=== PATIENT | female | born 1995 | race Caucasian/White ===

== ENCOUNTER 2022-09-01 16:55 | Emergency (ER) | payer MEDICAID, OTHER ==
[~2022-09-01] VITALS: Ht 154.9 cm; Wt 90.0 kg
[2022-09-01 17:15] VITALS: BP 144/97
[2022-09-01] MEDS ORDERED: ACETAMINOPHEN 325MG TABLET PO STA (21:19)
[2022-09-01] MEDS ORDERED: ONDANSETRON HCL 4MG/2ML INJ IV STA (21:19)
[2022-09-01] MEDS ORDERED: SODIUM CHLORIDE 0.9% 1,000 ML IV ONE (21:30)
[2022-09-01] MEDS ORDERED: AMOXICILLIN 500 MG CAPSULE PO ONE (21:30)
[2022-09-01 21:49] LABS: BASOPHILS % 0.3 % (0.0-2.0); EOSINOPHILS % 0.2 % (0.0-5.0); HEMATOCRIT. 42.1 % (36.0-48.0); LYMPHOCYTES % 19.9 % (20.0-50.0); MEAN CORPUSCULAR VOLUME 90.3 fL (81.0-99.0); MEAN PLATELET VOLUME 8.9 fl (7.4-10.4); MONOCYTES % 8.8 % (2.0-8.0); NEUTROPHILS % 70.8 % (40.0-76.0); PLATELET 269 x1000/uL (130-400); RED BLOOD CELL COUNT 4.66 mill/uL (4.2-5.4); RED CELL DISTRIBUTION WIDTH 18.2 % (11.6-14.6)
[2022-09-01 21:56] LABS: CHLORIDE 103 mEq/L (98-107)
[2022-09-01 22:14] LABS: CLARITY URINE TURBID (CLEAR); COLOR URINE YELLOW (YELLOW); KETONES URINE 2+ (NEGATIVE); LEUKOCYTE ESTERASE URINE 3+ (NEGATIVE); NITRITE URINE NEGATIVE (NEGATIVE); OCCULT BLOOD URINE NEGATIVE (NEGATIVE); PROTEIN URINE TRACE (NEGATIVE); SPECIFIC GRAVITY URINE 1.016 (1.005-1.030)
[2022-09-01] MEDS ORDERED: AMOX-494 MT (23:27)
[2022-09-01] MEDS ORDERED: NITR-87 MT (23:28)
== END 2022-09-01 23:50 | disposition home or self-care (01) ==
LOC: ER 16:55
DX: O23.43 Unspecified infection of urinary tract in pregnancy, third trimester (principal); N39.0 Urinary tract infection, site not specified; O26.893 Other specified pregnancy related conditions, third trimester; J01.90 Acute sinusitis, unspecified; Z3A.29 29 weeks gestation of pregnancy; Z98.890 Other specified postprocedural states
CPT/HCPCS: 36415; 80053; 81003; 85025; 87077; 87086; 87186; 96361; 96374; 99283; J2405; J7030

== ENCOUNTER 2022-10-13 11:33 | Observation (INO) | payer MEDICAID ==
[~2022-10-13 11:33] MED LIST: AMOX-494 MT; NITR-87 MT
[2022-10-13] MEDS ORDERED: ACETAMINOPHEN 325MG TABLET PO NR (12:00)
[2022-10-13 12:39] LABS: CLARITY URINE CLEAR (CLEAR); COLOR URINE YELLOW (YELLOW); KETONES URINE NEGATIVE (NEGATIVE); LEUKOCYTE ESTERASE URINE TRACE (NEGATIVE); NITRITE URINE NEGATIVE (NEGATIVE); OCCULT BLOOD URINE NEGATIVE (NEGATIVE); PROTEIN URINE NEGATIVE (NEGATIVE); SPECIFIC GRAVITY URINE 1.008 (1.005-1.030); UROBILINOGEN URINE 0.2 E.U./dL (0.2-1.0)
[2022-10-13 12:48] LABS: BASOPHILS % 0.3 % (0.0-2.0); EOSINOPHILS % 0.9 % (0.0-5.0); HEMATOCRIT. 36.1 % (36.0-48.0); HEMOGLOBIN. 12.2 g/dL (12.0-16.0); MEAN CORPUSCULAR HEMOGLOBIN 29.4 pg (28.0-32.0); MEAN CORPUSCULAR VOLUME 86.8 fL (81.0-99.0); MONOCYTES % 5.8 % (2.0-8.0); PLATELET 249 x1000/uL (130-400); RED BLOOD CELL COUNT 4.15 mill/uL (4.2-5.4); RED CELL DISTRIBUTION WIDTH 16.4 % (11.6-14.6)
[2022-10-13 12:53] LABS: D-DIMER 0.97 mg/L FEU (<0.50); PARTIAL THROMBOPLASTIN TIME 28.2 sec (23.4-31.0); PROTHROMBIN TIME 10.3 sec (9.6-11.0)
[2022-10-13 13:16] LABS: CHLORIDE 108 mEq/L (98-107)
== END 2022-10-13 14:15 | disposition home or self-care (01) ==
LOC: 8 EST LDRP 11:33
PROVIDERS: ADMIT Obstetrics & Gynecology; ATTEND Obstetrics & Gynecology
DX: O16.3 Unspecified maternal hypertension, third trimester (principal); Z3A.34 34 weeks gestation of pregnancy; Z79.899 Other long term (current) drug therapy
CPT/HCPCS: 36415; 59025; 76805; 76818; 80053; 81003; 84550; 85025; 85379; 85384; 85610; 85730; G0378; 99281; G0379

== ENCOUNTER 2022-11-02 05:19 | Inpatient (IN) | payer MEDICAID ==
[~2022-11-02] VITALS: Ht 154.9 cm; Wt 103.4 kg
[2022-11-02] MEDS ORDERED: PNV1TABL76 PO (06:04)
[2022-11-02] MEDS ORDERED: CARBOPROST TROMETHAMINE 250 MCG/ML AMPUL IM PRN (07:00)
[2022-11-02] MEDS ORDERED: NALOXONE HCL 0.4 MG/ML 1ML VIAL IM PRN (07:00)
[2022-11-02] MEDS ORDERED: METHYLERGONOVINE MALEATE 0.2 MG/ML IM PRN (07:00)
[2022-11-02] MEDS: LACTATED RINGERS 1,000 ML IV SCH ×2 (07:00→08:18)
[2022-11-02 07:28] LABS: BASOPHILS % 0.3 % (0.0-2.0); EOSINOPHILS % 1.4 % (0.0-5.0); HEMATOCRIT. 36.7 % (36.0-48.0); HEMOGLOBIN. 12.4 g/dL (12.0-16.0); LYMPHOCYTES % 31.9 % (20.0-50.0); MEAN CORPUSCULAR HEMOGLOBIN 29.6 pg (28.0-32.0); MEAN CORPUSCULAR VOLUME 87.3 fL (81.0-99.0); MEAN PLATELET VOLUME 11.1 fl (7.4-10.4); MONOCYTES % 7.6 % (2.0-8.0); NEUTROPHILS % 58.8 % (40.0-76.0); PLATELET 200 x1000/uL (130-400); RED BLOOD CELL COUNT 4.21 mill/uL (4.2-5.4); RED CELL DISTRIBUTION WIDTH 16.6 % (11.6-14.6)
[2022-11-02 07:37] LABS: CLARITY URINE CLEAR (CLEAR); COLOR URINE YELLOW (YELLOW); KETONES URINE NEGATIVE (NEGATIVE); LEUKOCYTE ESTERASE URINE NEGATIVE (NEGATIVE); NITRITE URINE NEGATIVE (NEGATIVE); OCCULT BLOOD URINE NEGATIVE (NEGATIVE); PROTEIN URINE NEGATIVE (NEGATIVE); SPECIFIC GRAVITY URINE 1.011 (1.005-1.030); UROBILINOGEN URINE 0.2 E.U./dL (0.2-1.0)
[2022-11-02 07:43] LABS: INR 0.9; PARTIAL THROMBOPLASTIN TIME 26.4 sec (23.4-31.0)
[2022-11-02 07:54] LABS: *AMPHETAMINES SCREEN URINE NEGATIVE (NEGATIVE); *BARBITURATES SCREEN URINE NEGATIVE (NEGATIVE); *BENZODIAZEPINES SCREEN URINE NEGATIVE (NEGATIVE); *COCAINE SCREEN URINE NEGATIVE (NEGATIVE); CANNABINOID URINE SCREEN NEGATIVE (NEGATIVE); METHADONE URINE SCREEN NEGATIVE (NEGATIVE); OPIATES URINE SCREEN NEGATIVE (NEGATIVE); PHENCYCLIDINE URINE SCREEN NEGATIVE (NEGATIVE)
[2022-11-02] MEDS ORDERED: EPHEDRINE SULFATE 50MG/ML VIAL ONE (08:16)
[2022-11-02] MEDS ORDERED: ONDANSETRON HCL 4MG/2ML INJ ONE (08:16)
[2022-11-02] MEDS ORDERED: MORPHINE SULFATE/PF 1MG/ML 10ML AMP ONE (08:16)
[2022-11-02] MEDS ORDERED: OXYTOCIN 10 UNITS/ML 1ML ONE ×3 (08:16→13:18)
[2022-11-02] MEDS ORDERED: METOCLOPRAMIDE HCL 10MG/2ML VIAL ONE (08:16)
[2022-11-02] MEDS ORDERED: CEFAZOLIN SODIUM 1000MG/VIAL ONE (08:16)
[2022-11-02] MEDS ORDERED: DIPHENHYDRAMINE 50MG/ML VIAL ONE (08:16)
[2022-11-02] MEDS ORDERED: PHENYLEPHRINE HCL 10 MG/ML 1ML (IV VIAL) IV ONE (08:17)
[2022-11-02] MEDS ORDERED: FENTANYL CITRATE/PF 50MCG/ML 2ML VIAL ONE (08:17)
[2022-11-02 08:20] LABS: CHLORIDE 108 mEq/L (98-107)
[2022-11-02 08:23] LABS: HEPATITIS B SURFACE ANTIGEN NEGATIVE
[2022-11-02] MEDS ORDERED: KETOROLAC 60MG/2ML VIAL IM ONE (13:00)
[2022-11-02] MEDS ORDERED: DIPHENHYDRAMINE 50MG/ML VIAL IV PRN (13:15)
[2022-11-02] MEDS ORDERED: BUTORPHANOL TARTRATE 2 MG/ML VIAL IV PRN (13:15)
[2022-11-02] MEDS ORDERED: NALOXONE HCL 0.4 MG/ML 1ML VIAL IV PRN (13:15)
[2022-11-02 16:00] VITALS: BP 122/86
[2022-11-02 16:15] VITALS: BP 125/70
[2022-11-02 16:44] VITALS: BP 130/80
[2022-11-02] MEDS: KETOROLAC 30MG/ML VIAL IV SCH (18:46)
[2022-11-02 20:00] VITALS: BP 111/71
[2022-11-03 00:50] VITALS: BP 102/62
[2022-11-03] MEDS: KETOROLAC 30MG/ML VIAL IV SCH (00:59)
[2022-11-03 03:00] VITALS: BP 105/60
[2022-11-03 07:10] LABS: BASOPHILS % 0.4 % (0.0-2.0); EOSINOPHILS % 0.8 % (0.0-5.0); HEMATOCRIT. 29.5 % (36.0-48.0); HEMOGLOBIN. 9.9 g/dL (12.0-16.0); LYMPHOCYTES % 14.8 % (20.0-50.0); MEAN CORPUSCULAR HEMOGLOBIN 29.6 pg (28.0-32.0); MEAN CORPUSCULAR VOLUME 88.8 fL (81.0-99.0); MEAN PLATELET VOLUME 10.7 fl (7.4-10.4); MONOCYTES % 5.7 % (2.0-8.0); NEUTROPHILS % 78.3 % (40.0-76.0); PLATELET 175 x1000/uL (130-400); RED BLOOD CELL COUNT 3.33 mill/uL (4.2-5.4); RED CELL DISTRIBUTION WIDTH 16.9 % (11.6-14.6)
[2022-11-03 07:30] VITALS: BP 100/64
[2022-11-03] MEDS ORDERED: KETOROLAC 30MG/ML VIAL IV SCH (08:00)
[2022-11-03] MEDS ORDERED: KETOROLAC 30MG/ML VIAL IV PRN (08:45)
[2022-11-03] MEDS ORDERED: DIPHENHYDRAMINE 25MG CAPSULE PO PRN (12:30)
[2022-11-03] MEDS ORDERED: ONDANSETRON HCL 4MG/2ML INJ IV PRN (12:30)
[2022-11-03] MEDS ORDERED: LANOLIN OINT 7GM TUBE TOP PRN (12:30)
[2022-11-03] MEDS ORDERED: RHO(D) IMMUNE GLOBULIN 300 MCG/SYR IM PRN (12:30)
[2022-11-03] MEDS ORDERED: IBUPROFEN 400MG TABLET PO PRN (12:30)
[2022-11-03] MEDS ORDERED: HEMORRHOIDAL SUPP PR PRN (12:30)
[2022-11-03] MEDS ORDERED: OXYTOCIN 30 UNITS/500ML NS PMX 500 ML IV SCH (12:30)
[2022-11-03] MEDS ORDERED: BISACODYL 10MG SUPP PR PRN (12:30)
[2022-11-03] MEDS ORDERED: DEXT 5%/LACTATED RINGERS 1,000 ML IV SCH (12:30)
[2022-11-03] MEDS ORDERED: ACETAMINOPHEN WITH CODEINE 300/30MG TABLET PO PRN (12:30)
[2022-11-03 16:00] LABS: BASOPHILS % 0.2 % (0.0-2.0); EOSINOPHILS % 1.1 % (0.0-5.0); HEMATOCRIT. 33.7 % (36.0-48.0); HEMOGLOBIN. 10.9 g/dL (12.0-16.0); LYMPHOCYTES % 12.1 % (20.0-50.0); MEAN CORPUSCULAR HEMOGLOBIN 28.8 pg (28.0-32.0); MEAN CORPUSCULAR VOLUME 89.6 fL (81.0-99.0); MEAN PLATELET VOLUME 10.2 fl (7.4-10.4); MONOCYTES % 5.6 % (2.0-8.0); PLATELET 209 x1000/uL (130-400); RED BLOOD CELL COUNT 3.77 mill/uL (4.2-5.4); RED CELL DISTRIBUTION WIDTH 16.8 % (11.6-14.6)
[2022-11-03 17:30] VITALS: BP 124/89
[2022-11-03 19:30] VITALS: BP 110/80
[2022-11-03] MEDS: MAGNESIUM/ALUMINUM HYDROXIDE/SIMETHICONE 30ML UDC PO SCH (21:13)
[2022-11-03] MEDS: SIMETHICONE 80MG TABLET CHEW PO SCH (21:14)
[2022-11-03] MEDS: IBUPROFEN 800MG TABLET PO PRN (21:14)
[2022-11-03] MEDS: DOCUSATE SODIUM 100MG CAPSULE PO SCH (21:14)
[2022-11-04] MEDS: IBUPROFEN 800MG TABLET PO PRN ×3 (03:25→22:03)
[2022-11-04 04:00] VITALS: BP 117/76
[2022-11-04 07:30] VITALS: BP 109/78
[2022-11-04] MEDS: SIMETHICONE 80MG TABLET CHEW PO SCH ×2 (07:49→20:55)
[2022-11-04] MEDS: MAGNESIUM/ALUMINUM HYDROXIDE/SIMETHICONE 30ML UDC PO SCH ×2 (07:49→20:55)
[2022-11-04] MEDS: FERROUS SULFATE 325MG TABLET PO SCH ×2 (07:49→16:10)
[2022-11-04 16:00] VITALS: BP 122/81
[2022-11-04] MEDS: PRENATAL VIT/FE FUMARATE/FA TABLET PO SCH (16:11)
[2022-11-04 19:30] VITALS: BP 114/85
[2022-11-04] MEDS: DOCUSATE SODIUM 100MG CAPSULE PO SCH (20:55)
[2022-11-05 04:00] VITALS: BP 123/87
[2022-11-05] MEDS: IBUPROFEN 800MG TABLET PO PRN (04:22)
[2022-11-05] MEDS: MAGNESIUM/ALUMINUM HYDROXIDE/SIMETHICONE 30ML UDC PO SCH (07:30)
[2022-11-05] MEDS: FERROUS SULFATE 325MG TABLET PO SCH (07:30)
[2022-11-05] MEDS: SIMETHICONE 80MG TABLET CHEW PO SCH (07:50)
[2022-11-05 07:58] VITALS: BP 108/74
[2022-11-05] MEDS: PRENATAL VIT/FE FUMARATE/FA TABLET PO SCH (08:13)
[2022-11-05] MEDS ORDERED: IBUP-2029 MT (09:25)
== END 2022-11-05 10:55 | disposition home or self-care (01) | DRG 540 ==
LOC: OBSVTOIN 05:19 → 8 EST LDRP 05:19 → 8EST 16:16
PROVIDERS: ADMIT Obstetrics & Gynecology; ATTEND Obstetrics & Gynecology
PROC: 10D00Z1 Extraction of Products of Conception, Low, Open Approach (ICD-10-PCS; principal; 2022-11-02)
DX: O34.211 Maternal care for low transverse scar from previous cesarean delivery (principal); Z20.822 Contact with and (suspected) exposure to COVID-19; Z37.0 Single live birth; Z3A.37 37 weeks gestation of pregnancy
CPT/HCPCS: 36415; 80053; 80305; 81003; 84550; 85025; 85384; 86592; 86703; 86762; 86850; 86900; 86920; 87340; 87426; 88307; 99281; J0690; J1200; J1885; J2274; J2370; J2405; J2765; J3010; J3490; J7120; J7121; A4315